=== PATIENT | female | born 1945 | race Caucasian/White ===

== ENCOUNTER 2018-01-20 07:51 | Day surgery (SDC) | payer MEDICARE, BC ==
[2018-01-20] MEDS ORDERED: Sodium Chloride 0.9% 10 ML Syringe FLUSH PRN (08:00)
[2018-01-20] MEDS ORDERED: Lactated Ringers 1,000 ML IV SCH (08:00)
[2018-01-20] MEDS ORDERED: Propofol 200 MG/20 ML SDV ONE ×2 (10:01→10:10)
--- NOTE | 2018-01-20 10:06 | PCM.PN ---
- General Info Date of Service: 01/20/18 - Review of Systems Systems Review Comment:: 72-year-old female with recent history of unexplained diarrhea and strong family history of colon cancer in multiple relatives referred for colonoscopy. Her last colon exam was 3 years ago. She has recently seen a waitstaff who is recommended colonoscopy with biopsy. The patient is medically stable to proceed today. She has had multiple colonoscopies in the past and understands indications options and risks. Her recent history and physical is reviewed and there is no significant change compared to that. She agrees to proceed with colonoscopy today. - Patient Data Vitals - Most Recent: Last Vital Signs Temp 98.6 F 01/20/18 08:19 Pulse 83 01/20/18 08:19 Resp 20 01/20/18 08:19 BP 133/63 01/20/18 08:19 Pulse Ox 98 01/20/18 08:19 Weight - Most Recent: 83 kg Med Orders - Current: Current Medications Lactated Ringer's (Ringers, Lactated) 1,000 mls @ 125 mls/hr IV ASDIRECTED KIA Last Admin: 01/20/18 09:17 Dose: 125 mls/hr Sodium Chloride (Saline Flush) 10 ml FLUSH ASDIRECTED PRN PRN Reason: Keep Vein Open - Problem List Review Problem List Initiated/Reviewed/Updated: Yes - My Orders Last 24 Hours: My Active Orders 01/20/18 08:00 Patient Status [ADT] Routine Peripheral IV Care [RC] . DIRECTED Verify Patient Consent Obtain [RC] ASDIRECTED Lactated Ringers [Ringers, Lactated] 1,000 ml IV ASDIRECTED Sodium Chloride 0.9% [Saline Flush] 10 ml FLUSH ASDIRECTED PRN Peripheral IV Insertion Adult [OM.PC] Routine - Assessment Assessment:: Diarrhea Family history of colon cancer - Plan Plan:: Colonoscopy
--- NOTE | 2018-01-20 10:58 | PCM.OPNOTE ---
- General Post-Op/Procedure Note Date of Surgery/Procedure: 01/20/18 Operative Procedure(s): Colonoscopy with biopsy Findings: Normal-appearing colon Small a ascending colon polyp Pre Op Diagnosis: Diarrhea. Family history of colon cancer Post-Op Diagnosis: Colon polyp. Otherwise normal colon Anesthesia Technique: MAC Primary Surgeon: Kirt Duran Pathology: Biopsies of terminal ileum, right colon, left colon. Colon polyp Output, Urine Amount: 0 EBL in mLs: 3 Complications: None Condition: Good Free Text/Narrative:: Intake & Output 01/19/18 01/20/18 01/20/18 22:59 06:59 14:59 Intake Total 600 Balance 600
[2018-01-20 11:27] VITALS: BP 129/83
--- NOTE | 2018-01-20 12:33 | OR ---
Date of Procedure: 01/20/2018 PREOPERATIVE DIAGNOSIS: Diarrhea, family history of colon cancer. POSTOPERATIVE DIAGNOSIS: Colon polyp, otherwise normal-appearing colon. OPERATION PERFORMED: Colonoscopy with biopsy. INDICATIONS FOR SURGERY: This is a 72-year-old female who has been having symptoms of diarrhea. She also has a strong family history of colon cancer. FINDINGS: A single polyp was noted in the ascending colon. This is 5-mm in size and sessile in configuration. The remainder of the colon and terminal ileum appeared normal. DESCRIPTION OF PROCEDURE: The patient was taken to the operating room. She was given intravenous sedation, and with her in the left lateral decubitus position, digital rectal exam was performed showing no rectal masses. The Olympus colonoscope was inserted into the rectum. Retroflexed examination of the rectal canal was performed. The scope was then carefully advanced under direct visualization through the entire length of the colon until the cecum was reached. Cecal acquisition was confirmed by noting the normal internal cecal anatomy including the appendiceal orifice and ileocecal valve. The light was also noted to transilluminate the abdominal wall in the right lower quadrant. The ileocecal valve was cannulated and the terminal ileum examined. Biopsies of the terminal ileum are taken. The mucosa of the terminal ileum appeared normal. The scope was then slowly withdrawn, sequentially re-examining the colonic segments. In the ascending colon, the above-described small polyp was identified and this was removed grossly in its entirety with multiple bites of the biopsy forceps. During withdrawal of the scope, random biopsies of the right side and left side of the colon were taken to evaluate for microscopic colitis. After the examination had been completed, the scope was removed, and the patient was taken from the operating room in satisfactory condition. ESTIMATED BLOOD LOSS: 3 mL. COMPLICATIONS: None. PROGNOSIS: Good. YANETH Duran MD /[id number]
== END 2018-01-20 12:00 | disposition home or self-care (01) ==
LOC: LL.SDS 07:51
PROVIDERS: ATTEND Surgery
DX: K52.9 Noninfective gastroenteritis and colitis, unspecified (principal); D12.2 Benign neoplasm of ascending colon; K21.9 Gastro-esophageal reflux disease without esophagitis; E11.9 Type 2 diabetes mellitus without complications; E66.9 Obesity, unspecified; E78.00 Pure hypercholesterolemia, unspecified; E55.9 Vitamin D deficiency, unspecified; E53.9 Vitamin B deficiency, unspecified; M16.12 Unilateral primary osteoarthritis, left hip; H52.4 Presbyopia; H52.209 Unspecified astigmatism, unspecified eye; Z79.84 Long term (current) use of oral hypoglycemic drugs; Z79.899 Other long term (current) drug therapy; Z88.0 Allergy status to penicillin; Z91.018 Allergy to other foods; Z86.010 Personal history of colon polyps; Z80.0 Family history of malignant neoplasm of digestive organs
CPT/HCPCS: J2704; J7120

== ENCOUNTER 2020-09-06 08:35 | Emergency (ER) | payer MEDICARE, BC ==
[2020-09-06] MEDS ORDERED: Ondansetron 4 MG/2 ML SDV IVPUSH ONE (08:56)
[2020-09-06] MEDS: Sodium Chloride 0.9% 10 ML Syringe FLUSH PRN ×2 (09:27→10:05)
--- NOTE | 2020-09-06 09:36 | EDM.PDOC ---
ED HPI GENERAL MEDICAL PROBLEM - General Chief Complaint: General Stated Complaint: BACK PAIN Time Seen by Provider: 09/06/20 09:08 Source of Information: Reports: Patient History Limitations: Reports: No Limitations - History of Present Illness INITIAL COMMENTS - FREE TEXT/NARRATIVE: Patient complains of sharp upper back pain that radiates around left side towards epigastric area that started around 0500. Has nausea/headache. Emesis x1. No bowel changes. Has history of chronic abdominal discomfort that is unchanged. Denies fevers/chills/body aches. Sensation of SOB/no pleuritic pain. No cough/sore throat/runny nose. No dysuria/UTI symptoms. No other reported changes. Icard fine yesterday. No sick contacts. No history of similar pain. Has been dealing with persistent issues from a fall last spring but no associated back pain from that fall has been noted previously. Has brain MRI scheduled for Wednesday. Patient does admit to eating a lot of food yesterday due to holidays. Has had gallbladder removed. Upper Back Pain Score (Numeric/FACES): 8 - Related Data Allergies Allergy/AdvReac Type Severity Reaction Status Date / Time Penicillins Allergy Swelling Verified 09/06/20 09:35 potato Allergy Swelling Verified 09/06/20 09:35 Home Meds: Home Meds Insulin Detemir [Levemir Flextouch] 30 units SUBCUT BEDTIME 04/26/16 [History] Omeprazole 20 mg PO BIDAC #60 cap.sr 06/24/18 [Rx] DULoxetine [Cymbalta] 30 mg PO DAILY 09/06/20 [History] Empagliflozin [Jardiance] 10 mg PO BEDTIME 09/06/20 [History] Glimepiride [Amaryl] 2 mg PO BIDAC 09/06/20 [History] Past Medical History HEENT History: Reports: Impaired Vision, Other (See Below) Other HEENT History: presbyopia, astigmatism, hypermetropia Cardiovascular History: Reports: High Cholesterol Other Cardiovascular History: Edema in the arms, legs, hands, and feet- swelling worsening with eating potatoes. Respiratory History: Reports: Bronchitis, Recurrent Gastrointestinal History: Reports: Colon Polyp, GERD, Irritable Bowel Syndrome (chronic loose stools) Genitourinary History: Reports: None Musculoskeletal History: Reports: Osteoarthritis, Other (See Below) Other Musculoskeletal History: 1)santillan fracture R #5 metatarsal. 2)Left shoulder pain. 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), CVA Psychiatric History: Reports: None Endocrine/Metabolic History: Reports: Diabetes, Type II, Obesity/BMI 30+ Hematologic History: Reports: Other (See Below) Other Hematologic History: vitamin D deficiency Immunologic History: Reports: None Oncologic (Cancer) History: Reports: None Dermatologic History: Reports: None - Infectious Disease History Infectious Disease History: Reports: Chicken Pox, Measles - Past Surgical History Female Surgical History: Reports: Section, Oophorectomy Musculoskeletal Surgical History: Reports: Shoulder Surgery Social & Family History - Family History Cardiac: Reports: Heart Failure Endocrine/Metabolic: Reports: Diabetes, type II Oncologic: Reports: Colon - Caffeine Use Caffeine Use: Reports: None ED ROS GENERAL - Review of Systems Review Of Systems: See Below Constitutional: Reports: No Symptoms HEENT: Reports: Glasses. Denies: Rhinitis, Throat Pain, Vision Change Respiratory: Reports: Shortness of Breath (mild sensation). Denies: Pleuritic Chest Pain Cardiovascular: Reports: Other (back pain medial to left scapula, radiates around to anterior chest). Denies: Lightheadedness, Palpitations, Syncope GI/Abdominal: Reports: Abdominal Pain (chronic/unchanged), Decreased Appetite, Nausea, Vomiting. Denies: Black Stool, Bloody Stool, Constipation, Diarrhea, Distension : Reports: No Symptoms Musculoskeletal: Reports: Other (no acute changes from baseline) Skin: Reports: No Symptoms Neurological: Reports: Pre-Existing Deficit (mild numbness left side limbs, previous injury to right hand/medial nerve pattern). Denies: Syncope, Change in Speech Psychiatric: Reports: No Symptoms ED EXAM, GENERAL - Physical Exam Exam: See Below Exam Limited By: No Limitations General Appearance: Alert, WD/WN, Other (Appears uncomfortable but no acute significant distress noted. ) Ears: Hearing Grossly Normal Nose: No: Nasal Deformity, Nasal Swelling, Nasal Drainage Throat/Mouth: Normal Lips, Normal Voice, No Airway Compromise Head: Atraumatic, Normocephalic Neck: Supple, Full Range of Motion Respiratory/Chest: No Respiratory Distress, Lungs Clear, Normal Breath Sounds, No Accessory Muscle Use Cardiovascular: Regular Rate, Rhythm, No Murmur GI/Abdominal: Soft, No Distention, No Abnormal Bruit, No Mass, Abnormal Bowel Sounds (diminished throughout), Other (diffuse tenderness noted, patient says this is NORMAL level of discomfort for her that she has daily. ) (Female) Exam: Deferred Rectal (Female) Exam: Deferred Back Exam: Paraspinal Tenderness (lateral to left thoracic spine/palpation reproduces and exacerbates patient's pain complaint). No: CVA Tenderness (L), CVA Tenderness (R) Extremities: Non-Tender, Normal Capillary Refill, Other (Patient moves all four limbs well, no obvious deficit one side vs other) Neurological: Alert, Oriented, Normal Cognition Psychiatric: Normal Affect, Normal Mood Skin Exam: Warm, Dry, Intact, Normal Color #1 Interpretation EKG Date: 09/06/20 Time: 08:52 Rhythm: NSR Rate (Beats/Min): 95 [place]: Normal P-Wave: Present QRS: Normal ST-T: Other (no obvious depression/elevation suggestive of acute ischemia) QT: Normal Comparison: Other: (minimal change) Course - Vital Signs Last Recorded V/S: Last Vital Signs Temp 37.2 C 09/06/20 08:36 Pulse 99 09/06/20 13:00 Resp 18 09/06/20 13:00 BP 121/55 L 09/06/20 13:00 Pulse Ox 95 09/06/20 13:00 - Orders/Labs/Meds Orders: Active Orders 24 hr Category Date Time Status Cardiac Monitoring [RC] . DIRECTED Care 09/06/20 08:55 Active EKG Documentation Completion [RC] ASDIRECTED Care 09/06/20 08:52 Active Peripheral IV Care [RC] . DIRECTED Care 09/06/20 08:56 Active Abdomen Series w Chest 1V [CR] Stat Exams 09/06/20 08:52 Taken PE Chest [Ang Chest] [CT] Stat Exams 09/06/20 09:52 Taken Morphine Med 09/06/20 09:53 Active 2 mg SUBCUT Q1H PRN Sodium Chloride 0.9% [Saline Flush] Med 09/06/20 08:55 Active 10 ml FLUSH ASDIRECTED PRN predniSONE Med 09/06/20 14:38 Once 40 mg PO ONETIME ONE Peripheral IV Insertion Adult [OM.PC] Routine Oth 09/06/20 08:55 Ordered Medication Orders Morphine Sulfate (Morphine) 2 mg SUBCUT Q1H PRN PRN Reason: Pain Sodium Chloride (Saline Flush) 10 ml FLUSH ASDIRECTED PRN PRN Reason: Keep Vein Open Last Admin: 09/06/20 10:05 Dose: 10 ml Documented by: Admin: 09/06/20 09:27 Dose: 10 ml Documented by: RICHIE Labs: Laboratory Tests 09/06/20 09/06/20 09/06/20 Range/Units 09:15 09:15 09:15 WBC 20.0 H (4.0-10.2) K/uL RBC 4.56 (3.77-5.09) M/uL Hgb 13.6 (11.7-15.5) g/dL Hct 42.6 (34.0-46.0) % MCV 93.4 (84.0-98.0) fL MCH 29.8 (28.2-33.3) pg MCHC 31.9 (31.7-36.0) g/dL RDW 13.0 (11.2-14.1) % Plt Count 217 (150-350) K/uL Neut % (Auto) 90.0 H (45.0-80.0) % Lymph % (Auto) 4.7 L (10.0-50.0) % [place] % (Auto) 5.1 (2.0-14.0) % Eos % (Auto) 0.1 (0.0-5.0) % Baso % (Auto) 0.1 (0.0-2.0) % Neut # (Auto) 18.01 H (1.40-7.00) K/uL Lymph # (Auto) 0.95 (0.50-3.50) K/uL [place] # (Auto) 1.02 H (0.00-1.00) K/uL Eos # (Auto) 0.02 (0.00-0.50) K/uL Baso # (Auto) 0.03 (0.00-0.20) K/uL PT (9.5-12.0) SEC INR D-Dimer, Quantitative 543 H (0-400) ng/mL Sodium 142 (136-145) mmol/L Potassium 4.3 (3.5-5.1) mmol/L Chloride 104 (98-107) mmol/L Carbon Dioxide 26.5 (21.0-32.0) mmol/L BUN 16 (7-18) mg/dL Creatinine 0.75 (0.51-1.17) mg/dL Est Cr Clr Drug Dosing 48.70 mL/min Estimated GFR (MDRD) > 60 mL/min Glucose 237 H (74-106) mg/dL POC Glucose (65-110) mg/dl Calcium 8.8 (8.5-10.1) mg/dL Magnesium 1.9 (1.8-2.4) mg/dL Total Bilirubin 0.7 (0.2-1.0) mg/dL AST 25 (15-37) U/L ALT 41 (12-78) U/L Alkaline Phosphatase 91 (46-116) IU/L Troponin I 0.000 (0.000-0.056) ng/mL Total Protein 7.5 (6.4-8.2) g/dL Albumin 3.5 (3.4-5.0) g/dL Amylase 52 (25-115) U/L Lipase 143 (73-393) U/L Specimen Type Urine Color Urine Appearance Urine pH (5.0-9.0) Ur Specific [place] (1.005-1.030) Urine Protein (NEGATIVE) mg/dL Urine Glucose (UA) (NEGATIVE) mg/dL Urine Ketones (NEGATIVE) mg/dL Urine Occult Blood (NEGATIVE) Urine Nitrite (NEGATIVE) Urine Bilirubin (NEGATIVE) Urine Urobilinogen (0.2-1.0) E.U./dL Ur Leukocyte Esterase (NEGATIVE) Urine RBC /HPF Urine WBC /HPF Ur Epithelial Cells /LPF Urine Yeast (NEGATIVE) /HPF 09/06/20 09/06/20 09/06/20 Range/Units 09:15 09:15 11:50 WBC (4.0-10.2) K/uL RBC (3.77-5.09) M/uL Hgb (11.7-15.5) g/dL Hct (34.0-46.0) % MCV (84.0-98.0) fL MCH (28.2-33.3) pg MCHC (31.7-36.0) g/dL RDW (11.2-14.1) % Plt Count (150-350) K/uL Neut % (Auto) (45.0-80.0) % Lymph % (Auto) (10.0-50.0) % [place] % (Auto) (2.0-14.0) % Eos % (Auto) (0.0-5.0) % Baso % (Auto) (0.0-2.0) % Neut # (Auto) (1.40-7.00) K/uL Lymph # (Auto) (0.50-3.50) K/uL [place] # (Auto) (0.00-1.00) K/uL Eos # (Auto) (0.00-0.50) K/uL Baso # (Auto) (0.00-0.20) K/uL PT 9.5 (9.5-12.0) SEC INR 0.9 D-Dimer, Quantitative (0-400) ng/mL Sodium (136-145) mmol/L Potassium (3.5-5.1) mmol/L Chloride (98-107) mmol/L Carbon Dioxide (21.0-32.0) mmol/L BUN (7-18) mg/dL Creatinine (0.51-1.17) mg/dL Est Cr Clr Drug Dosing mL/min Estimated GFR (MDRD) mL/min Glucose (74-106) mg/dL POC Glucose 224 H (65-110) mg/dl Calcium (8.5-10.1) mg/dL Magnesium (1.8-2.4) mg/dL Total Bilirubin (0.2-1.0) mg/dL AST (15-37) U/L ALT (12-78) U/L Alkaline Phosphatase (46-116) IU/L Troponin I (0.000-0.056) ng/mL Total Protein (6.4-8.2) g/dL Albumin (3.4-5.0) g/dL Amylase (25-115) U/L Lipase (73-393) U/L Specimen Type Urinvoid Urine Color Yellow Urine Appearance Cloudy Urine pH 5.0 (5.0-9.0) Ur Specific [place] 1.010 (1.005-1.030) Urine Protein Negative (NEGATIVE) mg/dL Urine Glucose (UA) 500 H (NEGATIVE) mg/dL Urine Ketones 40 H (NEGATIVE) mg/dL Urine Occult Blood Negative (NEGATIVE) Urine Nitrite Negative (NEGATIVE) Urine Bilirubin Negative (NEGATIVE) Urine Urobilinogen 0.2 (0.2-1.0) E.U./dL Ur Leukocyte Esterase Negative (NEGATIVE) Urine RBC Not seen /HPF Urine WBC 0-5 /HPF Ur Epithelial Cells Rare /LPF Urine Yeast Moderate H (NEGATIVE) /HPF 09/06/20 09/06/20 Range/Units 12:41 13:40 WBC (4.0-10.2) K/uL RBC (3.77-5.09) M/uL Hgb (11.7-15.5) g/dL Hct (34.0-46.0) % MCV (84.0-98.0) fL MCH (28.2-33.3) pg MCHC (31.7-36.0) g/dL RDW (11.2-14.1) % Plt Count (150-350) K/uL Neut % (Auto) (45.0-80.0) % Lymph % (Auto) (10.0-50.0) % [place] % (Auto) (2.0-14.0) % Eos % (Auto) (0.0-5.0) % Baso % (Auto) (0.0-2.0) % Neut # (Auto) (1.40-7.00) K/uL Lymph # (Auto) (0.50-3.50) K/uL [place] # (Auto) (0.00-1.00) K/uL Eos # (Auto) (0.00-0.50) K/uL Baso # (Auto) (0.00-0.20) K/uL PT (9.5-12.0) SEC INR D-Dimer, Quantitative (0-400) ng/mL Sodium (136-145) mmol/L Potassium (3.5-5.1) mmol/L Chloride (98-107) mmol/L Carbon Dioxide (21.0-32.0) mmol/L BUN (7-18) mg/dL Creatinine (0.51-1.17) mg/dL Est Cr Clr Drug Dosing mL/min Estimated GFR (MDRD) mL/min Glucose (74-106) mg/dL POC Glucose 219 H (65-110) mg/dl Calcium (8.5-10.1) mg/dL Magnesium (1.8-2.4) mg/dL Total Bilirubin (0.2-1.0) mg/dL AST (15-37) U/L ALT (12-78) U/L Alkaline Phosphatase (46-116) IU/L Troponin I 0.000 (0.000-0.056) ng/mL Total Protein (6.4-8.2) g/dL Albumin (3.4-5.0) g/dL Amylase (25-115) U/L Lipase (73-393) U/L Specimen Type Urine Color Urine Appearance Urine pH (5.0-9.0) Ur Specific [place] (1.005-1.030) Urine Protein (NEGATIVE) mg/dL Urine Glucose (UA) (NEGATIVE) mg/dL Urine Ketones (NEGATIVE) mg/dL Urine Occult Blood (NEGATIVE) Urine Nitrite (NEGATIVE) Urine Bilirubin (NEGATIVE) Urine Urobilinogen (0.2-1.0) E.U./dL Ur Leukocyte Esterase (NEGATIVE) Urine RBC /HPF Urine WBC /HPF Ur Epithelial Cells /LPF Urine Yeast (NEGATIVE) /HPF Meds: Medications Generic Name Dose Route Start Last Admin Trade Name Freq PRN Reason Stop Dose Admin Morphine Sulfate 2 mg 09/06/20 09:53 Morphine SUBCUT Q1H PRN Pain Sodium Chloride 10 ml 09/06/20 08:55 09/06/20 10:05 Saline Flush FLUSH 10 ml ASDIRECTED PRN Administration Keep Vein Open Discontinued Medications Generic Name Dose Route Start Last Admin Trade Name Freq PRN Reason Stop Dose Admin Al Hydroxide/Mg Hydroxide 30 ml 09/06/20 12:11 09/06/20 12:24 Gi Cocktail PO 09/06/20 12:12 30 ml ONETIME ONE Administration Sodium Chloride 500 mls @ 999 mls/hr 09/06/20 12:13 09/06/20 12:24 Normal Saline IV 09/06/20 12:43 999 mls/hr ONETIME ONE Administration Iopamidol 100 ml 09/06/20 09:54 09/06/20 10:36 Isovue-370 (76%) IVPUSH 09/06/20 09:55 100 ml ONETIME STA Administration Morphine Sulfate 2 mg 09/06/20 09:53 09/06/20 09:56 Morphine IVPUSH 09/06/20 09:54 2 mg ONETIME ONE Administration Ondansetron HCl 4 mg 09/06/20 08:56 09/06/20 09:16 Zofran IVPUSH 09/06/20 08:57 4 mg ONETIME ONE Administration Pantoprazole Sodium 40 mg 09/06/20 12:11 09/06/20 12:24 Protonix Iv IVPUSH 09/06/20 12:12 40 mg ONETIME ONE Administration - Radiology Interpretation Free Text/Narrative:: Abdominal/chest series overall unremarkable for acute findings. CT Results Date: 09/06/20 (No PE/pneumothorax/pneumonia/aneurysm etc noted. Has degenerative changes of thoracic spine. ) - Re-Assessments/Exams Free Text/Narrative Re-Assessment/Exam: 09/06/20 14:47 Cardiac labs obtained shortly after patient's arrival. EKG did not suggest acute ischemia. Chest/abd plain films overall unremarkable per Radiology. WBC elevated at 20. No evidence of focal infection on history/exam noted. UA unremarkable. No fevers. Gastroenteritis was within differential given patient's nausea and episode of emesis. Troponin/CBC/Chem/Mg/Amylase/Lipase unremarkable except for blood sugar of 237. DDimer elevated at 543. Given patient's chest/back discomfort complaint and mild SOB, a PE scan was ordered to rule out pulmonary embolism as cause of patient's pain. Radiology read this as having no PE/Pneumonia/aneurysm etc but did say patient had degenerative changes of spine. Patient's pain improved after small dose MS. Pastor helped with nausea. Patient observed for 4 hours on Telemetry and remained stable, pain overall improved at level of 2. Troponin repeated at 4 hours and was negative. Patient wishes to go home. Uncertain as to exact cause of pain but may be musculoskeletal given reproducibility with palpation over soft tissue of left upper back. She does have degenerative changes on CT. May also be GI in nature. Gastritis/esophageal spasm from excessive eating yesterday with referred pain could be considered. Elevated WBC could reflect stress response from the discomfort and not an active infection. May also consider viral gastroenteritis. Differential gone over with patient extensively. She is to observe for changes over the next 24-48 hours and return to the ER if she has any problems. Patient is agreeable with plan. Given her history of IBS/chronic abd discomfort it was recommended that she attempt an elimination diet and also avoid processed food and drinks. Departure - Departure Time of Disposition: 14:24 Disposition: Home, Self-Care 01 Condition: Good Clinical Impression: Atypical chest pain - Discharge Information *PRESCRIPTION DRUG MONITORING PROGRAM REVIEWED*: Not Applicable *COPY OF PRESCRIPTION DRUG MONITORING REPORT IN PATIENT BJ: Not Applicable Instructions: Nonspecific Chest Pain, Adult Referrals: Adelita Fletcher PA-C [Primary Care Provider] - Forms: ED Department Discharge Additional Instructions: See how you feel over the next few days. New symptoms/changes may help us pinpoint the cause of today's pain. The pain may be related to your stomach/esophagus as discussed. That can radiate into your back and cause nausea. This could go along with your history of stomach troubles and chronic aches in your abdomen. Again, highly recommend elimination diet. A good 'green list' to eat from for a month can be found in Katina BOYLE's [employer] book and accompanying cookbook. Take digestive enzymes that contain lipase or oxbile before all meals. Stop the soda. Water/teas are best. See if this approach helps you get rid of the gut aches. The pain could also be related to your back since pushing on the muscle near your scapula made it worse. If a nerve is getting pinched that can cause pain to wrap around the chest and also irritate the front of your chest and such pain can cause nausea. The scans and labs we performed today did not show any evidence of heart attack, pneumonia, rib fractures, obvious infection, or other chest abnormalities. You do have degenerative changes in your upper spine/arthritis. Call us if you have questions. Follow up as needed if symptoms persist/return. Sepsis Event Note (ED) - Evaluation Sepsis Screening Result: No Definite Risk - Focused Exam Vital Signs: Vital Signs Temp Pulse Resp BP Pulse Ox 09/06/20 13:00 99 18 121/55 L 95 09/06/20 12:30 94 18 123/58 L 100 09/06/20 12:00 92 20 127/62 94 L 09/06/20 11:30 90 18 121/55 L 95 09/06/20 11:00 89 19 123/54 L 98 09/06/20 10:53 91 18 95 09/06/20 10:40 93 18 126/62 89 L 09/06/20 10:20 95 18 132/61 92 L 09/06/20 09:50 95 21 H 110/55 L 94 L 09/06/20 09:35 96 21 H 115/60 94 L 09/06/20 09:20 95 21 H 112/60 92 L 09/06/20 09:05 94 21 H 115/54 L 94 L 09/06/20 08:50 95 22 H 127/63 95 09/06/20 08:36 37.2 C 97 18 121/66 96 09/06/20 08:35 96 22 H 124/68 96 - My Orders Last 24 Hours: My Active Orders 09/06/20 08:52 EKG Documentation Completion [RC] ASDIRECTED Abdomen Series w Chest 1V [CR] Stat 09/06/20 08:55 Cardiac Monitoring [RC] . DIRECTED Sodium Chloride 0.9% [Saline Flush] 10 ml FLUSH ASDIRECTED PRN Peripheral IV Insertion Adult [OM.PC] Routine 09/06/20 08:56 Peripheral IV Care [RC] . DIRECTED 09/06/20 09:52 PE Chest [Ang Chest] [CT] Stat 09/06/20 09:53 Morphine 2 mg SUBCUT Q1H PRN 09/06/20 14:38 predniSONE 40 mg PO ONETIME ONE - Assessment/Plan Last 24 Hours: My Active Orders 09/06/20 08:52 EKG Documentation Completion [RC] ASDIRECTED Abdomen Series w Chest 1V [CR] Stat 09/06/20 08:55 Cardiac Monitoring [RC] . DIRECTED Sodium Chloride 0.9% [Saline Flush] 10 ml FLUSH ASDIRECTED PRN Peripheral IV Insertion Adult [OM.PC] Routine 09/06/20 08:56 Peripheral IV Care [RC] . DIRECTED 09/06/20 09:52 PE Chest [Ang Chest] [CT] Stat 09/06/20 09:53 Morphine 2 mg SUBCUT Q1H PRN 09/06/20 14:38 predniSONE 40 mg PO ONETIME ONE
[2020-09-06 09:38] LABS: CHLORIDE,CL 104 mmol/L (98-107); SODIUM,NA 142 mmol/L (136-145)
[2020-09-06] MEDS ORDERED: Morphine 2 MG/ML SYRINGE SUBCUT PRN (09:53)
[2020-09-06] MEDS ORDERED: Morphine 2 MG/ML SYRINGE IVPUSH ONE (09:53)
[2020-09-06] MEDS ORDERED: Iopamidol 755 Mg/ML 100 ML Bottle IVPUSH STA (09:54)
[2020-09-06] MEDS ORDERED: Pantoprazole 40 MG Vial IVPUSH ONE (12:11)
[2020-09-06] MEDS ORDERED: GI Cocktail Oral Solution 30 ML PO ONE (12:11)
[2020-09-06] MEDS ORDERED: Sodium Chloride 0.9% 500 ML IV ONE (12:13)
[2020-09-06 13:53] VITALS: BP 121/55; PULSE 99
[2020-09-06] MEDS ORDERED: predniSONE 20 MG Tab PO ONE (14:38)
== END 2020-09-06 14:45 | disposition home or self-care (01) ==
LOC: LL.ED 08:35
DX: R07.89 Other chest pain (principal); K21.9 Gastro-esophageal reflux disease without esophagitis; E11.9 Type 2 diabetes mellitus without complications; E66.9 Obesity, unspecified; Z68.31 Body mass index [BMI] 31.0-31.9, adult; Z79.4 Long term (current) use of insulin; Z79.899 Other long term (current) drug therapy; Z88.0 Allergy status to penicillin; Z91.018 Allergy to other foods
CPT/HCPCS: 36415; 71275; 74022; 80053; 81001; 82150; 82962; 83690; 83735; 84484; 85025; 85379; 85610; 93005; 93010; 96374; 96375; 99283; 99284-25; A9270-GY; C9113; J2270; J2405; J7040; J7512; Q9967

== ENCOUNTER 2023-08-15 09:42 | Inpatient (IN) | payer MEDICARE ==
[2023-08-15] MEDS ORDERED: Ondansetron 4 MG/2 ML SDV IVPUSH ONE (10:06)
[2023-08-15] MEDS ORDERED: fentaNYL 50 MCG/ML SDV IVPUSH ONE ×2 (10:07→13:59)
[2023-08-15] MEDS ORDERED: Sodium Chloride 0.9% 1,000 ML IV ONE ×2 (10:07→11:30)
[2023-08-15] MEDS ORDERED: Naloxone 0.4 MG/ML SDV IVPUSH PRN (10:07)
[2023-08-15] MEDS ORDERED: Ondansetron 4 MG/2 ML SDV ONE (10:09)
[2023-08-15 10:15] LABS: BASOPHILS ABSOLUTE AUTO 0.03 K/uL (0.00-0.20); BASOPHILS PERCENT AUTO 0.2 % (0.0-2.0); EOSINOPHILS ABSOLUTE AUTO 0.06 K/uL (0.00-0.50); EOSINOPHILS PERCENT AUTO 0.4 % (0.0-5.0); HEMATOCRIT 43.3 % (34.0-46.0); HEMOGLOBIN 14.1 g/dL (11.7-15.5); LYMPHOCYTES ABSOLUTE AUTO 1.59 K/uL (0.50-3.50); LYMPHOCYTES PERCENT AUTO 10.8 % (10.0-50.0); MEAN CORPUSCULAR HGB CONC 32.6 g/dL (31.7-36.0); MEAN CORPUSCULAR VOLUME 92.1 fL (84.0-98.0); MONOCYTES ABSOLUTE AUTO 1.02 K/uL (0.00-1.00); MONOCYTES PERCENT AUTO 6.9 % (2.0-14.0); NEUTROPHILS ABSOLUTE AUTO 12.08 K/uL (1.40-7.00); NEUTROPHILS PERCENT AUTO 81.7 % (45.0-80.0); PLATELET COUNT,PLT 216 K/uL (150-350); RED CELL DISTRIBUTION WIDTH 12.3 % (11.2-14.1); WHITE BLOOD CELL COUNT,WBC 14.8 K/uL (4.0-10.2)
[2023-08-15 10:31] LABS: PROTHROMBIN TIME 9.8 SEC (9.0-11.1)
[2023-08-15 10:41] LABS: ALANINE AMINOTRANSFERASE,ALT 30 U/L (12-78); ALBUMIN 3.5 g/dL (3.4-5.0); ALKALINE PHOSPHATASE 96 IU/L (46-116); ASPARTATE AMNIOTRANSFERASE,AST 23 U/L (15-37); BILIRUBIN TOTAL 0.8 mg/dL (0.2-1.0); BLOOD UREA NITROGEN,BUN 19 mg/dL (7-18); CALCIUM 8.8 mg/dL (8.5-10.1); CHLORIDE,CL 101 mmol/L (98-107); CREATININE 1.09 mg/dL (0.51-1.17); ESTIMATED GFR 53 mL/min (>=60); GLUCOSE RANDOM 191 mg/dL (70-99); PRO B-TYPE NATRIUR PEPT,BNPPRO 113 pg/mL (0-125); PROTEIN TOTAL,TP 7.6 g/dL (6.4-8.2); SODIUM,NA 139 mmol/L (136-145)
[2023-08-15] MEDS ORDERED: Ketorolac 15 MG/ML SDV IVPUSH ONE (11:18)
[2023-08-15 12:20] LABS: APPEARANCE,URINE SLIGHTLY CLOUDY; BILIRUBIN,URINE NEGATIVE (NEGATIVE); COLOR,URINE YELLOW; GLUCOSE,URINE 100 mg/dL (NEGATIVE); KETONES,URINE TRACE mg/dL (NEGATIVE); LEUKOCYTE ESTERASE,URINE SMALL (NEGATIVE); NITRITE,URINE NEGATIVE (NEGATIVE); OCCULT BLOOD,URINE MODERATE (NEGATIVE); PROTEIN,URINE NEGATIVE (NEGATIVE); UROBILINOGEN,URINE 0.2 E.U./dL (0.2-1.0)
[2023-08-15 12:29] LABS: BACTERIA,URINE FEW /HPF (NONE TO FEW); EPITHELIAL CELLS,URINE MODERATE /LPF; MUCUS,URINE FEW /LPF (NEGATIVE); RBC,URINE 30-40 /HPF; WBC,URINE 75-100 /HPF
[2023-08-15 12:30] LABS: LACTIC ACID 1.1 mmol/L (0.4-2.0)
[2023-08-15] MEDS ORDERED: Levofloxacin/Dextrose 5%-Water 750 MG in Premix Bag 1 BAG IV SCH (14:00)
[2023-08-15] MEDS: Sodium Chloride 0.9% 1,000 ML IV SCH ×2 (14:04→23:42)
[2023-08-15] MEDS ORDERED: Ondansetron 4 MG/2 ML SDV IVPUSH PRN (15:37)
[2023-08-15] MEDS ORDERED: HYDROmorphone 0.5 MG/0.5 ML Syringe IVPUSH PRN (15:37)
[2023-08-15] MEDS: Ketorolac 15 MG/ML SDV IVPUSH SCH ×2 (17:28→23:38)
[2023-08-15] MEDS ORDERED: Ketorolac 15 MG/ML SDV IVPUSH PRN (17:30)
[2023-08-15] MEDS ORDERED: Non-Formulary Medication 1 Each (Semaglutide [Ozempic] 2 MG/0.75 ML Pen.Injctr) SQ SCH (19:30)
[2023-08-15] MEDS ORDERED: 50% Dextrose in Water 50 ML Syringe IVPUSH PRN (19:54)
[2023-08-15] MEDS ORDERED: Glucagon,Human Recombinant 1 MG Vial IM PRN (19:54)
[2023-08-15] MEDS ORDERED: Insulin Glarg,Human.Rec.Analog 100 Unit/ML 10 ML Vial SUBCUT SCH ×2 (20:00)
[2023-08-15] MEDS ORDERED: Tamsulosin 0.4 MG Cap.ER PO SCH (20:00)
[2023-08-15] MEDS: Sodium Chloride 0.9% 10 ML Syringe FLUSH PRN (23:42)
[2023-08-16] MEDS: Ketorolac 15 MG/ML SDV IVPUSH SCH (05:05)
[2023-08-16] MEDS: Sodium Chloride 0.9% 10 ML Syringe FLUSH PRN ×2 (05:05→08:31)
[2023-08-16 07:34] LABS: BASOPHILS ABSOLUTE AUTO 0.03 K/uL (0.00-0.20); BASOPHILS PERCENT AUTO 0.3 % (0.0-2.0); EOSINOPHILS ABSOLUTE AUTO 0.18 K/uL (0.00-0.50); EOSINOPHILS PERCENT AUTO 1.9 % (0.0-5.0); HEMATOCRIT 36.7 % (34.0-46.0); HEMOGLOBIN 11.8 g/dL (11.7-15.5); LYMPHOCYTES ABSOLUTE AUTO 2.44 K/uL (0.50-3.50); LYMPHOCYTES PERCENT AUTO 25.6 % (10.0-50.0); MEAN CORPUSCULAR HEMOGLOBIN 30.1 pg (28.2-33.3); MEAN CORPUSCULAR HGB CONC 32.2 g/dL (31.7-36.0); MEAN CORPUSCULAR VOLUME 93.6 fL (84.0-98.0); MONOCYTES ABSOLUTE AUTO 0.78 K/uL (0.00-1.00); MONOCYTES PERCENT AUTO 8.2 % (2.0-14.0); PLATELET COUNT,PLT 209 K/uL (150-350); RED BLOOD CELL COUNT 3.92 M/uL (3.77-5.09); RED CELL DISTRIBUTION WIDTH 12.2 % (11.2-14.1); WHITE BLOOD CELL COUNT,WBC 9.5 K/uL (4.0-10.2)
[2023-08-16 07:54] LABS: ALBUMIN 2.6 g/dL (3.4-5.0); BILIRUBIN TOTAL 0.8 mg/dL (0.2-1.0); CALCIUM 7.9 mg/dL (8.5-10.1); CREATININE 0.93 mg/dL (0.51-1.17); EST CRCL DRUG DOSING (CG) 37.54 mL/min
[2023-08-16] MEDS ORDERED: Glimepiride 2 MG Tab PO SCH (08:00)
[2023-08-16] MEDS ORDERED: Furosemide 40 MG/4 ML VIAL IVPUSH ONE (08:02)
[2023-08-16 08:31] VITALS: BP 124/62; PULSE 91
[2023-08-17] MEDS ORDERED: Levofloxacin/Dextrose 5%-Water 750 MG in Premix Bag 1 BAG IV SCH (14:00)
[2023-08-25 06:47] LABS: CA OXALATE MONOHYDR. 100 %; COLOR Brown; SIZE 2x2 mm; WEIGHT 4 mg
[2023-08-25 06:47] LABS: CA OXALATE MONOHYDR. 100 %; COLOR Brown; SIZE 6x4 mm; WEIGHT 48 mg
== END 2023-08-16 11:10 | disposition home or self-care (01) | DRG 694 ==
LOC: LL.ED 09:42 → LL.MS 13:30
PROVIDERS: ADMIT Physician Assistant; ATTEND Physician Assistant
DX: N20.0 Calculus of kidney (principal); N39.0 Urinary tract infection, site not specified; N13.9 Obstructive and reflux uropathy, unspecified; N20.2 Calculus of kidney with calculus of ureter; E11.9 Type 2 diabetes mellitus without complications; K21.9 Gastro-esophageal reflux disease without esophagitis; E78.00 Pure hypercholesterolemia, unspecified; E66.9 Obesity, unspecified; Z79.84 Long term (current) use of oral hypoglycemic drugs; Z68.34 Body mass index [BMI] 34.0-34.9, adult; Z98.890 Other specified postprocedural states; Z79.4 Long term (current) use of insulin; Z86.010 Personal history of colon polyps; Z86.73 Personal history of transient ischemic attack (TIA), and cerebral infarction without residual deficits; Z79.899 Other long term (current) drug therapy; Z88.0 Allergy status to penicillin; Z91.018 Allergy to other foods; Z88.8 Allergy status to other drugs, medicaments and biological substances
CPT/HCPCS: 36415; 74176; 80053; 81001; 82365; 82947; 83605; 83880; 85025; 85610; 87086; 94761; 96361; 96365; 96375; 96376; 99285-25; A9270-GY; J1815-GY; J1885; J1940; J1956; J2405; J3010; J3490; J7030

== ENCOUNTER 2024-02-23 11:45 | Emergency (ER) | payer MEDICARE ==
[2024-02-23] MEDS: Lactated Ringers 1,000 ML IV ONE (11:55)
[2024-02-23] MEDS: Adenosine 6 MG/2 ML SDV IVPUSH ONE (11:58)
[2024-02-23] MEDS: Sodium Chloride 0.9% 10 ML Syringe FLUSH PRN (11:59)
[2024-02-23 12:03] LABS: BASOPHILS ABSOLUTE AUTO 0.05 K/uL (0.00-0.20); BASOPHILS PERCENT AUTO 0.4 % (0.0-2.0); EOSINOPHILS ABSOLUTE AUTO 0.19 K/uL (0.00-0.50); EOSINOPHILS PERCENT AUTO 1.5 % (0.0-5.0); HEMATOCRIT 42.5 % (34.0-46.0); HEMOGLOBIN 13.8 g/dL (11.7-15.5); LYMPHOCYTES ABSOLUTE AUTO 3.06 K/uL (0.50-3.50); LYMPHOCYTES PERCENT AUTO 24.3 % (10.0-50.0); MEAN CORPUSCULAR HEMOGLOBIN 30.3 pg (28.2-33.3); MEAN CORPUSCULAR HGB CONC 32.5 g/dL (31.7-36.0); MEAN CORPUSCULAR VOLUME 93.2 fL (84.0-98.0); MONOCYTES ABSOLUTE AUTO 0.92 K/uL (0.00-1.00); MONOCYTES PERCENT AUTO 7.3 % (2.0-14.0); NEUTROPHILS ABSOLUTE AUTO 8.39 K/uL (1.40-7.00); NEUTROPHILS PERCENT AUTO 66.5 % (45.0-80.0); PLATELET COUNT,PLT 241 K/uL (150-350); RED BLOOD CELL COUNT 4.56 M/uL (3.77-5.09); RED CELL DISTRIBUTION WIDTH 12.3 % (11.2-14.1); WHITE BLOOD CELL COUNT,WBC 12.6 K/uL (4.0-10.2)
[2024-02-23 12:20] LABS: PROTHROMBIN TIME 9.7 SEC (9.0-11.1)
[2024-02-23 12:32] LABS: ALANINE AMINOTRANSFERASE,ALT 45 U/L (12-78); ALBUMIN 3.4 g/dL (3.4-5.0); ALKALINE PHOSPHATASE 95 IU/L (46-116); ANION GAP 9.3 meq/L (7-15); ASPARTATE AMNIOTRANSFERASE,AST 28 U/L (15-37); BILIRUBIN TOTAL 0.6 mg/dL (0.2-1.0); BLOOD UREA NITROGEN,BUN 12 mg/dL (7-18); CALCIUM 8.6 mg/dL (8.5-10.1); CARBON DIOXIDE,CO2 25.7 mmol/L (21.0-32.0); CHLORIDE,CL 102 mmol/L (98-107); CREATININE 1.05 mg/dL (0.51-1.17); GLUCOSE RANDOM 276 mg/dL (70-99); MAGNESIUM 1.7 mg/dL (1.8-2.4); POTASSIUM,K 4.1 mmol/L (3.5-5.1); PRO B-TYPE NATRIUR PEPT,BNPPRO 185 pg/mL (0-125); PROTEIN TOTAL,TP 7.4 g/dL (6.4-8.2); SODIUM,NA 137 mmol/L (136-145)
[2024-02-23 12:35] LABS: ESTIMATED GFR 55 mL/min (>=60)
[2024-02-23] MEDS: Metoprolol Succinate 50 MG Tab.ER PO ONE (13:26)
[2024-02-23] MEDS: Aspirin 81 MG Tab.Chew PO ONE (13:26)
[2024-02-23 14:49] VITALS: BP 134/80; PULSE 67
== END 2024-02-23 15:30 | disposition home or self-care (01) ==
LOC: LL.ED 11:45
DX: I47.10 Supraventricular tachycardia, unspecified (principal); R07.89 Other chest pain; E11.9 Type 2 diabetes mellitus without complications; E66.9 Obesity, unspecified; Z86.73 Personal history of transient ischemic attack (TIA), and cerebral infarction without residual deficits; Z79.4 Long term (current) use of insulin; Z79.84 Long term (current) use of oral hypoglycemic drugs; Z79.899 Other long term (current) drug therapy; Z88.0 Allergy status to penicillin; Z88.8 Allergy status to other drugs, medicaments and biological substances; Z91.018 Allergy to other foods
CPT/HCPCS: 36415; 71045; 80053; 83605; 83735; 83880; 84484; 85025; 85379; 85610; 93005; 94761; 96374; 99285; A9270; J0153; J7120; J3490

== ENCOUNTER 2024-06-18 13:03 | Emergency (ER) | payer MEDICARE ==
[2024-06-18] MEDS ORDERED: Nitroglycerin 0.4 MG Tab.SL SL PRN (13:09)
[2024-06-18] MEDS ORDERED: Sodium Chloride 0.9% 10 ML Syringe FLUSH PRN ×2 (13:09)
[2024-06-18 13:27] LABS: BASOPHILS ABSOLUTE AUTO 0.05 K/uL (0.00-0.20); BASOPHILS PERCENT AUTO 0.5 % (0.0-2.0); HEMOGLOBIN 12.9 g/dL (11.7-15.5); LYMPHOCYTES ABSOLUTE AUTO 2.14 K/uL (0.50-3.50); LYMPHOCYTES PERCENT AUTO 21.2 % (10.0-50.0); MEAN CORPUSCULAR HEMOGLOBIN 30.4 pg (28.2-33.3); MEAN CORPUSCULAR HGB CONC 32.3 g/dL (31.7-36.0); MEAN CORPUSCULAR VOLUME 94.1 fL (84.0-98.0); MONOCYTES ABSOLUTE AUTO 0.67 K/uL (0.00-1.00); MONOCYTES PERCENT AUTO 6.6 % (2.0-14.0); NEUTROPHILS ABSOLUTE AUTO 7.15 K/uL (1.40-7.00); NEUTROPHILS PERCENT AUTO 70.7 % (45.0-80.0); PLATELET COUNT,PLT 188 K/uL (150-350); RED BLOOD CELL COUNT 4.25 M/uL (3.77-5.09); RED CELL DISTRIBUTION WIDTH 12.4 % (11.2-14.1); WHITE BLOOD CELL COUNT,WBC 10.1 K/uL (4.0-10.2)
[2024-06-18] MEDS: Aspirin 81 MG Tab.Chew PO ONE (13:27)
[2024-06-18 13:42] LABS: PROTHROMBIN TIME 9.8 SEC (9.0-11.1)
[2024-06-18 13:49] LABS: LACTIC ACID 2.2 mmol/L (0.4-2.0)
[2024-06-18 13:53] LABS: ALANINE AMINOTRANSFERASE,ALT 31 U/L (12-78); ALBUMIN 3.3 g/dL (3.4-5.0); ALKALINE PHOSPHATASE 93 IU/L (46-116); ANION GAP 8.2 meq/L (7-15); ASPARTATE AMNIOTRANSFERASE,AST 21 U/L (15-37); BILIRUBIN TOTAL 0.3 mg/dL (0.2-1.0); BLOOD UREA NITROGEN,BUN 15 mg/dL (7-18); CALCIUM 8.8 mg/dL (8.5-10.1); CARBON DIOXIDE,CO2 28.8 mmol/L (21.0-32.0); CHLORIDE,CL 104 mmol/L (98-107); CREATININE 1.11 mg/dL (0.51-1.17); ESTIMATED GFR 52 mL/min (>=60); GLUCOSE RANDOM 283 mg/dL (70-99); LIPASE 56 U/L (16-77); MAGNESIUM 1.7 mg/dL (1.8-2.4); POTASSIUM,K 3.9 mmol/L (3.5-5.1); PRO B-TYPE NATRIUR PEPT,BNPPRO 123 pg/mL (0-125); PROTEIN TOTAL,TP 7.4 g/dL (6.4-8.2); SODIUM,NA 141 mmol/L (136-145)
[2024-06-18] MEDS ORDERED: Magnesium Chloride 64 MG Tab.ER PO ONE (16:17)
[2024-06-18 20:10] VITALS: BP 123/68; PULSE 80
== END 2024-06-18 16:56 | disposition home or self-care (01) ==
LOC: LL.ED 13:03
DX: R07.89 Other chest pain (principal); K59.00 Constipation, unspecified; E11.9 Type 2 diabetes mellitus without complications; E66.9 Obesity, unspecified; Z79.4 Long term (current) use of insulin; Z79.899 Other long term (current) drug therapy; Z88.8 Allergy status to other drugs, medicaments and biological substances; Z88.0 Allergy status to penicillin; Z91.018 Allergy to other foods; Z68.39 Body mass index [BMI] 39.0-39.9, adult
CPT/HCPCS: 36415; 71046; 74176; 80053; 83605; 83690; 83735; 83880; 84484; 85025; 85610; 93005; 93010; 99284; 99285; A9270-GY